=== PATIENT | male | born 1980 | race Caucasian/White ===

== ENCOUNTER 2023-12-25 21:30 | Emergency (ER) | payer SELFPAY ==
[~2023-12-25] VITALS: Ht 172.7 cm; Wt 80.0 kg
[2023-12-25 21:35] VITALS: TEMP 98.9; O2SAT 100
[2023-12-26] MEDS ORDERED: KETOROLAC 15MG/ML VIAL IM ONE (00:45)
[2023-12-26] MEDS ORDERED: LIDO700A15 TP (03:54)
[2023-12-26] MEDS ORDERED: NAPR-1176 MT (03:54)
[2023-12-26 06:00] VITALS: BP 148/76; PULSE 71; RESP 16
[2023-12-26] MEDS: KETOROLAC 15MG/ML VIAL IM NR (06:00)
== END 2023-12-26 06:43 | disposition home or self-care (01) ==
LOC: ER 21:30
DX: M25.561 Pain in right knee (principal)
CPT/HCPCS: 99283; 73562; J1885